=== PATIENT | male | born 1950 | race Caucasian/White ===

== ENCOUNTER 2016-08-29 08:58 | Inpatient (IN) | payer MEDICARE, OTHER ==
[2016-08-22 16:09] LABS: BASOPHILS 0.6 %; BASOPHILS ABSOLUTE 0.05 10/3/uL (0.0-0.16); EOSINOPHILS 4.4 %; EOSINOPHILS ABSOLUTE 0.35 10/3/uL (0.0-0.53); HEMATOCRIT 42.5 % (40.0-51.0); HEMOGLOBIN 14.3 g/dL (13.6-17.8); IMMATURE GRANULOCYTES 0.4 %; IMMATURE GRANULOCYTES ABSOLUTE 0.03 10/3/uL (0.0-0.11); LYMPHOCYTES 27.8 %; LYMPHOCYTES ABSOLUTE 2.19 10/3/uL (0.67-4.30); MANUAL DIFF NO %; MEAN CORPUS HGB CONC 33.6 g/dL (32.0-36.0); MEAN CORPUSCULAR HEMOGLOB 33.7 pg (26.0-34.0); MEAN CORPUSCULAR VOLUME 100.2 fL (80-100); MEAN PLATELET VOLUME 9.8 fL (9.2-13.0); MONOCYTES 7.4 %; MONOCYTES ABSOLUTE 0.58 10/3/uL (0.21-1.20); NEUTROPHILS 59.4 %; NEUTROPHILS ABSOLUTE 4.69 10/3/uL (2.02-8.40); PLATELET COUNT 234 10/3/uL (150-400); RBC DISTRIBUTION WIDTH 13.3 % (12.0-16.0); RED CELL COUNT 4.24 10/6/uL (4.7-6.1); WHITE BLOOD CELLS 7.9 10/3/uL (4.5-10.5)
[2016-08-22 16:12] LABS: ASCORBIC ACID (UR NOT ORDER) NEG (NEG); BILIRUBIN, URINE NEGATIVE (NEG); KETONE, URINE NEGATIVE (NEG); LEUKOCYTE ESTERASE(NOT OR NEG (NEG); WBC (NOT ORDERED) (RFLEX) < 1 (0-5)
[2016-08-22 16:15] LABS: INTERNATIONAL NORMAL RATI 1.2 UNITS (-); PROTIME (NOT ORD) 15.2 SEC (12.0-14.5)
[2016-08-22 16:32] LABS: % IRON SAT 32 % (20-50); A/G RATIO 0.9 (0.7-1.9); ALBUMIN 3.5 G/DL (3.5-5.0); ALKALINE PHOSPHATASE 40 U/L (45-117); BUN (BLOOD UREA NITROGEN) 18 MG/DL (6-23); CALCIUM, SERUM 9.2 MG/DL (8.5-10.4); CHLORIDE, SERUM 100 MMOL/L (96-112); CO2 (CARBON DIOXIDE) 31 MMOL/L (24-34); CREATININE 1.17 MG/DL (0.70-1.30); GFR AFRICAN AMERICAN 74 ML/MIN (>=60); GFR NON AFRICAN AMERICAN 64 ML/MIN (>=60); GLOBULIN 3.7 G/DL (2.5-4.1); GLUCOSE, SERUM 143 MG/DL (60-99); IRON BINDING CAPACITY 346 MCG/DL (250-450); IRON, SERUM 111 MCG/DL (35-150); POTASSIUM, SERUM 4.4 MMOL/L (3.5-5.3); SGOT(AST) 30 U/L (5-40); SGPT(ALT) 39 U/L (5-65); SODIUM, SERUM 140 MMOL/L (135-148); TOTAL BILIRUBIN 0.4 MG/DL (0-1.2); TOTAL PROTEIN 7.2 G/DL (6.0-8.5)
--- NOTE | ~2016-08-29 | DS ---
Discharge Summary [facility] [address] [place]. [address] NAME: ZAC GARCIA : 46 STATUS : DIS IN PAT#: [id number] AGE: 66 ADM/REG DATE : 08/29/16 MR#: [id number] REPORT SERV DATE: 12/05/16 DICTATED BY: MADHAVI INGRAM DATE: 12/05/16 REPORT STATUS : Draft TRANSCRIBED BY: BITA DATE: 12/05/16 Data Collection from hospitalization DISCHARGE DIAGNOSES: 1. Coronary artery disease. 2. Persistent atrial fibrillation. 3. Transient ischemic attack. 4. Peripheral vascular disease. 5. Type 2 diabetes mellitus. 6. Obstructive sleep apnea. 7. Hypertension. 8. Hypercholesterolemia. 9. Carotid artery disease. 10.Depression. 11.Anemia. 12.History of myocardial infarction. 13.Peripheral vascular disease. 14.Former smoker. CONSULTATIONS: 1. Jori Simpson M.D. 2. Stephanie Smith M.D. 3. Jack Irwin M.D. PROCEDURE PERFORMED: 1. Coronary artery bypass grafting x4 with left internal mammary artery to the left anterior descending artery, reverse saphenous vein graft placed to the first obtuse marginal, reverse saphenous vein graft placed to the posterior descending artery and reverse saphenous vein graft placed to the posterolateral branch vessel; endoscopic vein harvest of the saphenous vein from the left thigh; Burden-Maze IV procedure on cardiopulmonary bypass using radiofrequency ablation and cryoablation; and transesophageal echocardiography on 08/29/2016. PATHOLOGY: Left atrial appendage excision - atrial tissue with mild myocyte hypertrophy and focal fatty infiltration, otherwise, unremarkable. MEDICATIONS: Eliquis 5 mg twice a day, vitamin C 1000 mg twice a day, aspirin 81 mg daily, Lipitor 80 mg daily, vitamin B12 1000 mcg at bedtime, Neurontin 600 mg three times a day, NovoLog injection insulin as instructed, Lantus as instructed, Effexor 37.5 mg daily, Prilosec 20 mg daily, Glucophage 850 mg three times a day, Tylenol 1000 mg twice a day, vitamin D3 2000 units three times a day, and Mag-Delay one tablet daily. CONDITION AT DISCHARGE: Stable. DISPOSITION: The patient was discharged to [facility] on an 1800-calorie cardiac/diabetic diet with activities as instructed. HOSPITAL COURSE: This is a 66-year-old man who has a history of paroxysmal atrial Discharge [id number] [facility] [place]. [address] NAME: ZAC GARCIA : 48 STATUS : DIS IN PAT#: [id number] AGE: 66 ADM/REG DATE : 08/29/16 MR#: [id number] REPORT SERV DATE: 12/05/16 DICTATED BY: MADHAVI INGRAM DATE: 12/05/16 REPORT STATUS : Draft TRANSCRIBED BY: MODAn DATE: 12/05/16 fibrillation who had been evaluated for a possible catheter-based ablation therapy with Dr. Bales. He has a history of paroxysmal atrial fibrillation and recurrently persistent atrial fibrillation. Transesophageal echocardiogram prior to cardioversion and considered catheter based ablation demonstrated clot in the left atrial appendage. This procedure was aborted. The patient has no knowledge of when he developed atrial fibrillation or converts to a normal sinus rhythm. His atrial fibrillation dates back to 2010. The patient has had several TIAs over the past four or five years. The patient had undergone a cardiac catheterization which demonstrated significant coronary artery disease. Ventricular function was preserved with an ejection fraction around 50%. Echocardiography demonstrated good ventricular function with no significant valvular pathology and no ASD or patent foramen ovale. The patient did have ad dilated left atrium. Treatment options were discussed and it was elected to proceed with surgical intervention. He was admitted to the hospital at this time for further evaluation and treatment. Upon admission, he was taken to the operating room where he underwent the above-mentioned procedure. He tolerated this well, and there were no complications. Postoperatively, he was seen by Dr. Jack Irwin. The patient was still sedated and intubated. The patient had a left ventricular ejection fraction of 50%. On postop day #1, he did complain of pain consistent with postop pain. His lungs were clear. Amiodarone was continued. He did have some confusion. His incisions looked okay. He had no edema. He remained in the ICU for now. On 08/31/2016, his blood pressure was labile. He still had some confusion. Serum creatinine level was elevated. White count was 13. The patient's said that postop confusion was not unusual for him. He was seen in consultation by Dr. Jori Simpson Jr., regarding acute kidney injury. His impression included acute kidney injury, nonoliguric. Serum creatinine was 2.0. He had mild chronic kidney disease with nonnephrotic proteinuria. His usual creatinine is 1.1. With regard to his sluggish urinary output, vascular congestion, and mild hyperkalemia, he was going to be given a couple of doses of loop diuretics. IV fluids were reduced. The Cody catheter was going to remain in place for urinary monitoring. It was felt that he should be a candidate for resumption of STORMY inhibitor at a later date. Lopressor and amiodarone were continued. The patient had profound first-degree AV block. Lopressor was placed on hold. He was transferred to the floor. He did have some generalized weakness. He was seen in consultation by Dr. Stephanie Smith regarding diabetes management. The patient has a history of type 2 diabetes and takes Lantus twice a day and sliding scale insulin. The patient said his blood sugars have been reasonably controlled on this regimen and that his latest hemoglobin A1c was 6.7. He has had a significantly decreased appetite postoperatively, but he was tolerating his diet. INR level was 1.3. He was placed on Levemir once a day as well as level 2 sliding scale insulin. Glucerna was added with meals. Diet and lifestyle modification were extensively discussed with the patient. He underwent diabetes education. His amiodarone dose was decreased. Beta-april had been stopped. Anticoagulant would be restarted after chest tubes were removed. He had been taking apixaban. On 09/02/2016, his sternum was clean, dry, and intact. INR level was 1.4. Levemir was increased. He did have some incisional discomfort. Creatinine was 1.42. The next day, his INR level was 1.8. Orthostatic vital signs were checked. He did have some dizziness as well as a short syncopal episodes. He had no chest pain or shortness of breath. He was afebrile. He had no edema. He was evaluated by Physical Therapy. Levemir was increased. Discharge Summary [place] [id number] [facility] [place]. [address] NAME: ZAC GARCIA : 46 STATUS : DIS IN PAT#: [id number] AGE: 66 ADM/REG DATE : 08/29/16 MR#: [id number] REPORT SERV DATE: 12/05/16 DICTATED BY: MADHAVI INGRAM DATE: 12/05/16 REPORT STATUS : Draft TRANSCRIBED BY: BITA DATE: 12/05/16 On 09/04/2016, amiodarone was decreased. Eliquis was continued. His lungs were clear. Occupational Therapy evaluated the patient. Discharge planning was performed. On 09/06/2016, he complained of pain in his left back and chest. He felt like it improves during the day, he had no edema. Discharge instructions were given. Due to his improved and stable condition, he was discharged to [facility] with the above-stated instructions. Information collected by: Muriel Lawrence I submit the above information as my discharge summary. TEJAS/BITA Madhavi Ingram M.D. / [id number] CC: Alisha Lewis M.D. [facility] Alisha Prince Jr, M.D.
--- NOTE | ~2016-08-29 | CN ---
Consultation Report [facility] [address] [place]. [address] NAME: ZAC GARCIA : 46 STATUS : ADM IN [facility]#: [id number] AGE: 66 ADM/REG DATE : 08/29/16 MR#: [id number] REPORT SERV DATE: 09/01/16 DICTATED BY: STEPHANIE SMITH DATE: 09/01/16 REPORT STATUS : Draft TRANSCRIBED BY: MODL DATE: 09/01/16 CONSULT DATE OF CONSULTATION: REASON FOR CONSULT: Diabetes management. HISTORY OF PRESENT ILLNESS: This is a very pleasant 66-year-old gentleman, who has an extensive past medical history significant for coronary artery disease, status post prior ND, status post recent CABG x4 performed during this hospitalization; atrial fibrillation, on anticoagulation, status post maze procedure; history of TIA; history of diabetes type 2, insulin dependent, uncontrolled; obstructive sleep apnea, on CPAP; history of hypertension; hyperlipidemia; peripheral vascular disease, status post right lower extremity amputation; who has been recently admitted to [facility] Surgery where the patient underwent CABG x4, performed by Dr. Ingram on 08/29/2016. The patient has a history of diabetes type 2, for which he is taking Lantus twice a day and sliding scale insulin. The patient says that his blood sugars have been reasonably controlled on this regimen and his latest hemoglobin A1c is 6.7. Postoperatively, the patient has a significantly decreased appetite, but he is tolerating diet. He is denying any chest pain or increasing shortness of breath. No nausea or vomiting. No abdominal pain. No increased urinary frequency or urgency. No other complaints. Hospitalist Service has been consulted for management of his diabetes. PAST MEDICAL HISTORY: Again, the past medical history is significant for coronary artery disease, status post CABG; atrial fibrillation; history of TIA; history of diabetes type 2, uncontrolled, insulin dependent; history of hypertension; chronic kidney disease; history of obstructive sleep apnea; history of degenerative joint disease; osteoarthritis; depression; anxiety; GERD; and history of diabetic neuropathy. PAST SURGICAL HISTORY: Includes status post right BKA, also open cholecystectomy, right carotid endarterectomy, right great toe amputation, revision of the right below-knee amputation stump secondary to an infection. SOCIAL HISTORY: He is not a smoker. He quit about 18 years ago. No alcohol. No IV drugs. ALLERGIES: THE PATIENT IS ALLERGIC TO AMPICILLIN AND MEPERIDINE. MEDICATIONS: At home include Tylenol, Eliquis, aspirin, Lipitor, vitamin D3, Plavix, vitamin B12, Neurontin, NovoLog, Lantus, lisinopril, mag chloride, Glucophage, Lopressor, Prilosec, garlic over the counter, and Effexor. FAMILY HISTORY: Significant for cancer, dementia, and heart disease. REVIEW OF SYSTEMS: A 14-point review of systems has been obtained and pertinent positive has been listed into Consultation Report [id number] [place]. [address] NAME: ZAC GARCIA : 46 STATUS : ADM IN [facility]#: [id number] AGE: 66 ADM/REG DATE : 08/29/16 MR#: [id number] REPORT SERV DATE: 09/01/16 DICTATED BY: STEPHANIE SMITH DATE: 09/01/16 REPORT STATUS : Draft TRANSCRIBED BY: MODAn DATE: 09/01/16 the history of present illness. Otherwise, negative except those underlying above. PHYSICAL EXAMINATION: VITAL SIGNS: Currently, the patient is afebrile. Blood pressure 159/71, heart rate 87, respiratory rate 19, saturating 97% on room air. Blood sugars 101, 103, 143, 147, 123, 125. GENERAL: He is a well-developed, well-nourished gentleman, in no acute distress. He is alert and oriented x3. Mildly confused at times. Following all commands appropriately. HEENT: Exam shows pupils equal, round, and reactive to light. Extraocular movements intact. NECK: No JVD. No lymphadenopathy. No thyromegaly appreciated. CHEST: Eval shows bilateral air entry. Decreased breath sounds bibasilarly. No wheezes, crackles, or rhonchi appreciated. CARDIOVASCULAR: He has regular rate and rhythm. S1, S2 positive. No S3, no S4. No murmurs, rubs, or gallops appreciated. ABDOMEN: Soft with positive bowel sounds. Nontender. No guarding. No rebound. EXTREMITIES: No clubbing, cyanosis, or edema. The patient has right BKA, which has a clean stump. NEUROLOGIC: The patient is alert and oriented x3. He does have some confusion at this time, but he is cooperative and he follows commands appropriately. Cranial nerves are intact. LABORATORY DATA: Labs from today include a sodium of 143, potassium 5.2, chloride 109, CO2 25, BUN 52, creatinine 1.89, glucose is 123. The patient's hemoglobin A1c was 6.7. His white count is 8, hemoglobin 9.4, hematocrit 28.3, platelets 128. INR 1.3. ASSESSMENT AND PLAN: This is a very pleasant 66-year-old gentleman with: 1. Coronary artery disease, status post CABG x4, status post maze procedure. 2. Diabetes type 2, insulin dependent, uncontrolled. We are going to place the patient on Levemir once a day currently, Accu-Cheks before meals and at bedtime, sliding scale insulin subcutaneously level 2, add Glucerna with meals. Also, diet and lifestyle modification has been discussed extensively with the patient as well. Further workup and recommendation pending above. Thank you for the consult. We will continue to follow with you. It is also worthwhile to note that the patient is going to be followed by Dr. Hilda Lieberman. CF/DERRICKL Stephanie Smith M.D. / [id number] CC: Consultation Report [address] [address] NAME: ZAC GARCIA : 46 STATUS : ADM IN [facility]#: [id number] AGE: 66 ADM/REG DATE : 08/29/16 MR#: [id number] REPORT SERV DATE: 09/01/16 DICTATED BY: STEPHANIE SMITH DATE: 09/01/16 REPORT STATUS : Draft TRANSCRIBED BY: BITA DATE: 09/01/16 Olu Ingram M.D.
--- NOTE | ~2016-08-29 | CN ---
Consultation Report [facility] [address] [place]. [address] NAME: ZAC GARCIA : 46 STATUS : ADM IN PAT#: [id number] AGE: 66 ADM/REG DATE : 08/29/16 MR#: [id number] REPORT SERV DATE: 08/31/16 DICTATED BY: TRINO HU JR DATE: 08/31/16 REPORT STATUS : Draft TRANSCRIBED BY: MODL DATE: 08/31/16 NEPHROLOGY CONSULTATION DATE OF CONSULTATION: 08/31/2016 REASON FOR CONSULTATION: Acute kidney injury. IMPRESSION: 1. Acute kidney injury, nonoliguric, entry serum creatinine 1.4 and 2.0 today. 2. Mild chronic kidney disease with nonnephrotic proteinuria, usual creatinine 1.1. 3. Status post four-vessel CABG and a maze procedure on 08/29. 4. History of transient ischemic attack. 5. History of peripheral vascular disease with remote right lower extremity BKA. 6. Adult-onset diabetes. 7. Somewhat depressed urinary output. 8. Hyperkalemia. 9. Mild pulmonary vascular congestion. 10.Altered mental status that the family attributes to post anesthesia effect. RECOMMENDATIONS: With regard to the sluggish urinary output, vascular congestion and mild hyperkalemia, I will give him a couple of doses of loop diuretic. IV fluids have already been reduced. Please keep the Cody for urinary monitoring in a gentleman who is confused and experiencing acute renal failure. He should be a candidate for resumption of STORMY inhibitor later. HISTORY OF PRESENT ILLNESS: This gentleman is followed by [facility] for mild chronic kidney disease, estimated GFR in the 60-70 mL/minute range, with urine protein excretion less than 2 g per day. He has undergone coronary artery bypass grafting and a maze procedure. Prior history of atrial fibrillation. History is of type 2 diabetes, essential hypertension, prior episode of acute kidney injury requiring hemodialysis for several months, remote history of C difficile colitis, cataract removed, cholecystectomy, gastroesophageal reflux disease, dyslipidemia, peripheral neuropathy, prior episode of vancomycin-resistant Enterococcus bacteremia that was stated to be simultaneous with a PermCath use. He came in electively for his bypass procedure three days ago, operation was two days ago, he has experienced an increase in his serum creatinine and his urine output, though nonoliguric, is sluggish. PREHOSPITAL MEDICATIONS: Apixaban 5 mg twice a day; aspirin 81 mg a day; atorvastatin 80 mg daily; vitamin D3, 2000 units three times a week; Clopidogrel 75 mg daily; vitamin B12, 1000 mcg daily; gabapentin 600 mg three times a day; sliding scale insulin; lisinopril 20 mg a day; magnesium 535 mg daily; metformin 850 mg three times a day; metoprolol 25 mg twice a Consultation Report [place] [id number] [facility] [place]. [address] NAME: ZAC GARCIA : 46 STATUS : ADM IN PAT#: [id number] AGE: 66 ADM/REG DATE : 08/29/16 MR#: [id number] REPORT SERV DATE: 08/31/16 DICTATED BY: TRINO HU JR DATE: 08/31/16 REPORT STATUS : Draft TRANSCRIBED BY: BITA DATE: 08/31/16 day; omeprazole 20 mg daily; [id number]-ptnstxf garlic; and Effexor 37.5 mg daily. ALLERGIES: LISTED AMPICILLIN AND MEPERIDINE. FAMILY HISTORY: Notable for a brother with diabetes; a brother with cardiovascular disease; father at a young age, cause of is not listed. SOCIAL HISTORY: Former smoker, not a current smoker. Retired. No history of alcohol use. REVIEW OF SYSTEMS: The patient does not currently acknowledge head, neck, pulmonary, other cardiac, GI, , musculoskeletal, neurological, integumentary, or psychiatric complaints. He does have confusion. His hands are in mittens for protection of self and devices. PHYSICAL EXAMINATION: GENERAL: Overweight male, looks stated age, in no acute distress. HEENT: Male pattern baldness. Pupils are equal. No icterus. No periorbital edema. No epistaxis. Mucous membranes of the mouth are moist. Facial symmetry is noted. NECK: No jugular venous distention at 60 degrees. No carotid bruits heard. Trachea is midline. Adenopathy is not felt. Supraclavicular nodes are not palpable. LUNGS: Clear to auscultation with symmetrical air entry. HEART: Tones regular without rub, murmur, or gallop being appreciated. Sternal wound is not palpated. ABDOMEN: Obese, soft, nontender without distended liver edge in the upright position. Guarding and tenderness is not noted. GENITALIA: Cody catheter is in place, appropriate drainage of his urine. EXTREMITIES: The right lower extremity, BKA stump is clean, dry, and intact. There is no edema of the right lower extremity. The left lower extremity is heavily bandaged and could not be examined. NEUROLOGIC: He has some confusion. Dysarthria, however, is not present. He obviously moves all extremities. Cognition is diminished. However, he is cooperative with the examiner. DATA: Today, sodium 142, potassium 5.3, chloride 110, CO2 of 23, BUN is 43, creatinine 2.0, anion gap is about 10, calcium is 7.5. White count is 13,000; hemoglobin 10, down from 13; MCV 101; platelets 175. Chest x-ray, I reviewed, with some mild interstitial vascular congestion and small effusions. DF/MODL Trino Hu Jr, M.D. Consultation Report [address] [place]. [address] NAME: ZAC GARCIA : 46 STATUS : ADM IN PAT#: [id number] AGE: 66 ADM/REG DATE : 08/29/16 MR#: [id number] REPORT SERV DATE: 08/31/16 DICTATED BY: TRINO HU JR DATE: 08/31/16 REPORT STATUS : Draft TRANSCRIBED BY: MODL DATE: 08/31/16 / [id number] CC: Alisha Lewis M.D. [facility] Liang Bales M.D.
--- NOTE | ~2016-08-29 | OP ---
Record Of Operation [facility] [address] [place]. [address] NAME: ZAC GARCIA : 46 STATUS : ADM IN PAT#: [id number] AGE: 66 ADM/REG DATE : 08/29/16 MR#: [id number] REPORT SERV DATE: 08/29/16 DICTATED BY: MADHAVI INGRAM DATE: 08/29/16 REPORT STATUS : Draft TRANSCRIBED BY: MODL DATE: 08/29/16 DATE OF PROCEDURE: 08/29/2016 PREOPERATIVE DIAGNOSES: 1. Coronary artery disease. 2. Persistent atrial fibrillation. 3. History of transient ischemic attack. 4. Peripheral vascular disease status post amputation right lower extremity. 5. History of previous myocardial infarction. 6. Type 2 insulin-dependent diabetes mellitus. 7. Obstructive sleep apnea. 8. Hypertension. 9. Hypercholesterolemia. 10.Left foot ulcer. PROCEDURE PERFORMED: 1. Coronary artery bypass grafting x4, left internal mammary artery placed to left anterior descending, reverse saphenous vein graft placed to the first obtuse marginal, reverse saphenous vein graft placed to the posterior descending artery, and reverse saphenous vein graft placed to the posterolateral branch vessel. 2. Endoscopic vein harvest, saphenous vein from the left thigh. 3. Burden-Maze IV procedure on cardiopulmonary bypass using radiofrequency ablation and cryoablation. 4. Transesophageal echocardiography. SURGEON: Madhavi Ingram M.D. ASSISTANTS: Carlos Salmon and Jovany Grande. ANESTHESIA: General with Dr. Weir. PRIVATE DUTY AIDE: Calvin Wright M.D. INDICATIONS: This is a 66-year-old gentleman with a history of paroxysmal atrial fibrillation who was evaluated for a possible catheter based ablation therapy with Dr. Bales. He has history of paroxysmal atrial fibrillation and recurrently persistent atrial fibrillation. DARLENE prior to cardioversion and considered catheter based ablation demonstrated clot in the left atrial appendage, and this procedure was aborted. The patient was then referred for possible Burden-Maze IV procedure. The patient has no knowledge of when he develops atrial fibrillation or converts to normal sinus rhythm. Atrial fibrillation dates back to 2010. His most recent history is that of TIAs, and he has had several TIAs over last four or five years. In June, he had some right arm numbness which extended to the right face. He went to the emergency room but had resolution prior to presentation there. He has no history of stroke. He does have a history of previous non ST-elevation myocardial infarction. We saw the patient in our office, and he was referred for cardiac catheterization. Cardiac catheterization demonstrated significant coronary artery disease. Record Of Operation [facility] [address] [place]. [address] NAME: ZAC GARCIA : 46 STATUS : ADM IN PAT#: [id number] AGE: 66 ADM/REG DATE : 08/29/16 MR#: [id number] REPORT SERV DATE: 08/29/16 DICTATED BY: MADHAVI INGRAM DATE: 08/29/16 REPORT STATUS : Draft TRANSCRIBED BY: MODL DATE: 08/29/16 Ventricular function was preserved with an ejection fraction around 50%. Echocardiography demonstrated good ventricular function with no significant valvular pathology and no ASD or patent foramen ovale. The patient did have dilated left atrium. We saw the patient again in our office and after catheterization, I reviewed the films and felt the patient undergo coronary bypass grafting with possible Burden-Maze IV procedure. This was discussed at length with the patient and his family and after discussing the operations, indication, and risks, they wished to proceed. STS predicted risk for coronary bypass grafting was less than 3% mortality, and morbidity mortality was less than 10%. FINDINGS AT OPERATION: 1. Cross-clamp 77 minutes, total pump time 115 minutes. 2. The LAD was a 2 mm moderately diseased vessel. A 3 mm FAYE was anastomosed to it with good runoff. 3. The first obtuse marginal was 1.75 mm moderately diseased. A 4 mm RSVG was anastomosed to it with good runoff. 4. The posterior descending artery was 2 mm and moderately diseased. A 3 mm saphenous vein graft was anastomosed to it with good runoff. 5. The posterolateral branch vessel was 1.75 mm and moderately diseased. A 3.5 mm RSVG was anastomosed to it with good runoff. The vein graft for the posterior lateral and posterior descending vessels was a natural Y graft. 6. The vein quality was good. We used a natural Y graft for the posterior descending and posterior lateral branch vessels. All grafts had good Doppler signal at the end of the case. 7. The Burden-Maze IV procedure was performed on cardiopulmonary bypass using the AtriCure radiofrequency ablation system and cryoprobe. Please refer to the complete Burden-Maze IV lesion set checklist on the patient's operative record. Entrance sensing was tested for pulmonary veins. 8. We did ligate and amputate the left atrial appendage. On examination of the left atrial appendage, no clot was seen within the left atrial appendage. 9. DARLENE demonstrated mildly reduced ventricular function with EF of 40%. There was no surgically significant valvular dysfunction. No clot was visualized in the left atrial appendage on DARLENE. 10.Large plaque of ascending aortic stent beginning at 2 cm proximal to the takeoff of the innominate and extending up around the arch. 11.On cardiac catheterization review in the operating room, I felt the LAD had a significant midvessel lesion in it, and that is why we used the YANNI to bypass this vessel. PATHOLOGIC SPECIMENS: Include left atrial appendage. DESCRIPTION OF PROCEDURE: The patient was brought to the operating suite. General anesthesia was induced. Airway was secured with an endotracheal tube. Lines secured by Anesthesia and Cody catheter was placed. The patient's chest, abdomen, groin, and legs were prepped with Hibiclens and ChloraPrep and draped with Ioban sterile sheets. DARLENE probe was placed by Dr. Weir and examination carried out as discussed above. The saphenous vein was harvested from the left thigh using endoscopic technique. Briefly, Record Of Operation [facility] [id number] [facility] [place]. [address] NAME: ZAC GARCIA : 46 STATUS : ADM IN PAT#: [id number] AGE: 66 ADM/REG DATE : 08/29/16 MR#: [id number] REPORT SERV DATE: 08/29/16 DICTATED BY: MADHAVI INGRAM DATE: 08/29/16 REPORT STATUS : Draft TRANSCRIBED BY: MODAn DATE: 08/29/16 the vein was cut directly down upon through a 2 cm incision placed at the medial aspect of the right knee. Then, using VasoView trocars, the vessel was dissected from the surrounding subcutaneous tissue and fat. The side branches were identified, ligated, divided with cautery. Once adequate length of vein had been dissected, a counter incision made up in the groin where the vein was ligated, divided, and brought through the knee incision. The vein quality was good. In fact, there was a nice natural Y in this vein graft that I felt was usable for one of the distal targets. The leg wounds were then made hemostatic and closed in layers with absorbable suture and skin closed in subcuticular fashion. Then, a midline sternal incision was made and the sternum opened with a saw. The left hemithorax was elevated. The endothoracic fascia was incised. Side branch of the YANNI were clipped and divided. Once the YANNI was completely dissected, the patient was anticoagulated with heparin, and chest tube placed in the left pleural cavity. The YANNI was clipped and divided distally. There was good flow through the YANNI and its pedicle was infiltrated with papaverine. Next, the Mello retractor was placed, and the pericardium was opened from the innominate vein. The diaphragm was T'd and tacked to the side of the chest wall. Cannulation pursestring sutures were placed. Cannulation ascending aorta was carried out. It should be noted there was a large plaque in the anterior wall of the ascending aorta that appeared to be circumferential. It extended 2 cm proximal to the origin of the innominate artery. We cannulated the very proximal extent of this plaque and it was avoided. Next, the Maze procedure was begun. The AtriCure bipolar clamp was used to perform the right atrial appendage lesion along with the vertical right atrial lesion. A dual-stage venous cannula was then placed. When all was in readiness, the patient was placed on cardiopulmonary bypass. We continued with the right-sided lesion set for the Maze procedure. Small right atriotomy was made, and SVC and IVC lesions were created. A cryo was utilized to perform a tricuspid annular lesion at the 2 o'clock position and a coronary sinus based lesion. Once this portion of the Maze procedure was completed, a retrograde cardioplegia cannula was placed. We then marked out the distal targets on the heart as described in the findings. We resumed left-sided portion of the Maze procedure by first dissecting around the confluence of the pulmonary veins bilaterally. The AtriCure bipolar pen was used then for sensing the left pulmonary veins. Left and right pulmonary venous isolation was performed using AtriCure bipolar clamps. The lesion was placed at the base of the left atrial appendage using the clamp and then a connecting lesion between the left PVI and the left atrial appendage was performed using the AtriCure bipolar pen. Next, the aorta was crossclamped. Initial dose cold blood cardioplegia solution was given in a combination of antegrade and retrograde fashion, then in a retrograde manner following proximal anastomoses. Following completion of the first dose of cardioplegia, we continued and completed the left-sided portion of the Maze procedure. A small left atriotomy was made in Waterston's groove between right and left atrium. The AtriCure bipolar clamp was then utilized to perform a superior and inferior dome lesions. A Record Of Operation [facility] [address] [facility] [place]. [address] NAME: ZAC GARCIA : 46 STATUS : ADM IN PAT#: [id number] AGE: 66 ADM/REG DATE : 08/29/16 MR#: [id number] REPORT SERV DATE: 08/29/16 DICTATED BY: MADHAVI INGRAM DATE: 08/29/16 REPORT STATUS : Draft TRANSCRIBED BY: BITA DATE: 08/29/16 partial lesion was placed down toward the mitral annulus in the region of P3 and this was completed across up to the anulus using the cryoprobe. Once the Maze procedure was completed, the LV vent was placed through the right superior pulmonary vein, and the left atrial anatomy was closed in a two-layer fashion with running pledgeted suture of 4-0 Prolene. Heart support was placed, and we continued with the procedure as a bypass operation. Another dose of cardioplegia was given. The heart was first positioned for the obtuse marginal graft. Arteriotomy was made, and the vein graft trimmed and anastomosed to it with 7-0 Prolene. The vein graft was measured to the left side of the ascending aorta where it was divided. We then positioned the heart for the posterolateral branch graft. Arteriotomy was made in the natural Y, graft was brought to the field, and one limb of this Y was anastomosed to the posterior lateral branch with a running suture of 7-0 Prolene. The vein graft was then measured to the ascending aorta where it was divided. Next, proximal ends of the two vein grafts were anastomosed to 4.5 mm punch aortotomy with a 6-0 Prolene. Another dose of cardioplegia was given, and we positioned the heart for the PDA graft. Taking the remaining branch of the natural Y graft, arteriotomy was made in the PDA. The vein was opened and anastomosed to this vessel with a running suture of 7-0 Prolene. We then positioned the heart for the LAD graft, and warming was begun. Arteriotomy was made in the mid to distal LAD. The YANNI was brought out of the left chest through a notch in the pericardium over the pulmonary artery. The YANNI was opened and anastomosed to the LAD with a running suture of 8-0 Prolene. The endothoracic fascia was tacked to epicardium. The patient was placed in Trendelenburg and final dose of warm blood cardioplegia was given in a retrograde fashion. Ventricular and atrial pacing wires were placed. Low-dose inotropic agents were started. Following the last dose cardioplegia and deairing of the aorta, the aortic cross clamp was removed. The distal and proximal anastomoses and suture lines were inspected and made hemostatic. Doppler demonstrated good flow through the grafts. The heart resumed a junctional rhythm and later a sinus rhythm. Ventilation was begun. When the heart demonstrated good contractility, it was allowed to fill and eject. De-airing was monitored with DARLENE. When deairing was completed, the LV vent was removed and these pursestring sutures tied. The ascending aortic vent was likewise removed and these pursestring sutures tied and reinforced. The patient was weaned from cardiopulmonary bypass with inotropic support. The venous cannulas were removed, and these pursestring sutures tied. DARLENE examination demonstrated good ventricular function with no surgically significant valvular disease. Protamine was administered by Anesthesia and following a period of hemodynamic stability, the aortic cannula was removed and these pursestring sutures tied and reinforced. The patient continued to do well and chest irrigated copiously with saline. Meticulous hemostasis was obtained. Hemasorb was placed along the cut edge of the sternum. Once hemostasis was assured, the pericardium was draped over the anterior surface of the heart and tacked into position. Doppler demonstrated good flow through the grafts following Record Of Operation [facility] [address] [facility] [place]. [address] NAME: ZAC GARCIA : 46 STATUS : ADM IN [facility]#: [id number] AGE: 66 ADM/REG DATE : 08/29/16 MR#: [id number] REPORT SERV DATE: 08/29/16 DICTATED BY: MADHAVI INGRAM DATE: 08/29/16 REPORT STATUS : Draft TRANSCRIBED BY: MODL DATE: 08/29/16 protamine administration. Then, chest tubes were placed and sternum reapproximated with 8 sternal wires. The clavipectoral fascia and linea alba closed with #1 Stratafix. The subcutaneous tissue was closed with Stratafix and skin closed in subcuticular fashion. The patient tolerated the procedure well. There were no complications. Sponge and needle counts were correct. DISPOSITION: The patient was left intubated, sedated, and transported to the Intensive Care Unit in stable condition. LAURIE/BITA Madhaiv Ingram M.D. / [id number] CC: Alisha Lewis M.D. C. Samuel Ledford, M.D.
[~2016-08-29 08:58] MED LIST: ACET500CAP PO; ALLERGY MEDICATION PO; ASA5GR PO; ASAB PO; ATEN50 PO; CEFAZ1 IM; CINNAMONPO PO; COREG3 PO; CYANO1000T PO; EFFEX37.5 PO; ELIQUIS 5 MG TAB5 MG PO; GARLIC; GARLIC OR; GARLIC OTC PO; GLUCOPHAGE1000 MG PO; GLUCPH PO; GLUCPH8 PO; HALF81 PO; HYDROCHLOROT25 MG PO; KETOPROFEN50 MG PO; KLOR-CON M2020 MEQ PO; LANTUS; LANTUS SC; LEVAQ750PM IV; LIPITOR20 PO; LIPITOR80 MG PO; LISINOPRIL40 MG PO; LOP25 PO; LOVENOX SC; MAG-DELAY PO; MAGNESIUM OTC PO; MAGONATE PO; MCZ25 PO; METFORMIN PO; MULTIVIT/MIN PO; NEUR300 PO; NORV10 PO; NORV5 PO; NOVOLOG SC; PLAVIX PO; POTASSIUM95 MG PO; PRILO PO; PRILOSEC40 MG PO; PRIN10 PO; PRIN20 PO; VITAMIN D3 OTC PO; VITAMIN D31000 UNIT PO; ZOCOR40 PO
[2016-08-29 10:29] LABS: TEG - ANGLE 71.5 DEG (53-72); TEG - COAGULATION INDEX 0.6 (-3 TO 3); TEG - RATE 7.3 MIN (5.0-10.0); TEG PLAVIX/EFFIENT/TICLID(ADP) 10.3 % INHIB (< 40)
[2016-08-29 10:30] LABS: MAX AMP (ADP) 61.4 MM (35-68)
[2016-08-29 16:22] LABS: BE (BASE EXCESS) -0.1 MEQ/L (0 +/- 2.5); CARBOXYHEMOGLOBIN 0.4 % (0-3); HCO3 (ACTUAL BICARBONATE) 25.5 MEQ/L (23-27); HEMOBLOGIN CONTENT 13.6 G/DL (14-18); INSTRUMENT SERIAL # 11843; METHEMOGLOBIN 0.3 % (0-3); MODE SIMV; O2 CONTENT 19.2 VOL% (18-24); OPERATOR ID 18642; PCO2 (CO2 TENSION) 45 MMHG (35-45); PO2 (O2 TENSION) 226 MMHG (79-93); PRESSURE SUPPORT 0 cm.H2O; SAMPLE Arterial; TIDAL VOLUME 700 ML; pH 7.37 (7.37-7.43)
[2016-08-29 16:55] LABS: HEMATOCRIT 38.8 % (40.0-51.0); HEMOGLOBIN 13.2 g/dL (13.6-17.8); PLATELET COUNT 179 10/3/uL (150-400)
[2016-08-29 17:02] LABS: INTERNATIONAL NORMAL RATI 1.3 UNITS (-); PARTIAL THROMBO TIME 34.4 SEC (22.5-37.2)
[2016-08-29 17:05] LABS: CHLORIDE, SERUM 108 MMOL/L (96-112); CO2 (CARBON DIOXIDE) 27 MMOL/L (24-34); CREATININE 1.43 MG/DL (0.70-1.30); GFR AFRICAN AMERICAN 58 ML/MIN (>=60); GFR NON AFRICAN AMERICAN 50 ML/MIN (>=60); GLUCOSE, SERUM 124 MG/DL (60-99); SODIUM, SERUM 142 MMOL/L (135-148)
[2016-08-29 17:07] LABS: BUN (BLOOD UREA NITROGEN) 29 MG/DL (6-23); POTASSIUM, SERUM 4.2 MMOL/L (3.5-5.3)
[2016-08-29 21:01] LABS: HEMATOCRIT 36.7 % (40.0-51.0); HEMOGLOBIN 12.4 g/dL (13.6-17.8)
[2016-08-29 21:22] LABS: BUN (BLOOD UREA NITROGEN) 28 MG/DL (6-23); CALCIUM, SERUM 7.8 MG/DL (8.5-10.4); CHLORIDE, SERUM 112 MMOL/L (96-112); CO2 (CARBON DIOXIDE) 25 MMOL/L (24-34); CREATININE 1.44 MG/DL (0.70-1.30); GFR AFRICAN AMERICAN 57 ML/MIN (>=60); GFR NON AFRICAN AMERICAN 50 ML/MIN (>=60); GLUCOSE, SERUM 138 MG/DL (60-99); POTASSIUM, SERUM 4.6 MMOL/L (3.5-5.3); SODIUM, SERUM 145 MMOL/L (135-148)
[2016-08-29 22:02] LABS: BE (BASE EXCESS) -2.5 MEQ/L (0 +/- 2.5); CARBOXYHEMOGLOBIN 0.9 % (0-3); DEVICE NC; HCO3 (ACTUAL BICARBONATE) 22.5 MEQ/L (23-27); HEMOBLOGIN CONTENT 12.4 G/DL (14-18); INSTRUMENT SERIAL # 11843; METHEMOGLOBIN 0.2 % (0-3); O2 CONTENT 16.7 VOL% (18-24); OPERATOR ID 32193; PCO2 (CO2 TENSION) 40 MMHG (35-45); PO2 (O2 TENSION) 98 MMHG (79-93); SAMPLE Arterial; pH 7.37 (7.37-7.43)
[2016-08-29 22:29] LABS: BASOPHILS 0.1 %; BASOPHILS ABSOLUTE 0.01 10/3/uL (0.0-0.16); EOSINOPHILS 0.2 %; EOSINOPHILS ABSOLUTE 0.02 10/3/uL (0.0-0.53); IMMATURE GRANULOCYTES 0.3 %; IMMATURE GRANULOCYTES ABSOLUTE 0.03 10/3/uL (0.0-0.11); LYMPHOCYTES 7.4 %; LYMPHOCYTES ABSOLUTE 0.75 10/3/uL (0.67-4.30); MEAN CORPUS HGB CONC 34.2 g/dL (32.0-36.0); MEAN CORPUSCULAR HEMOGLOB 33.9 pg (26.0-34.0); MEAN CORPUSCULAR VOLUME 99.2 fL (80-100); MEAN PLATELET VOLUME 9.8 fL (9.2-13.0); MONOCYTES 3.9 %; NEUTROPHILS 88.1 %; NEUTROPHILS ABSOLUTE 8.92 10/3/uL (2.02-8.40); PLATELET COUNT 158 10/3/uL (150-400); RBC DISTRIBUTION WIDTH 13.3 % (12.0-16.0); RED CELL COUNT 3.63 10/6/uL (4.7-6.1); WHITE BLOOD CELLS 10.1 10/3/uL (4.5-10.5)
[2016-08-29 22:37] LABS: MANUAL DIFF NO %
[2016-08-30 03:34] LABS: HEMOGLOBIN 10.9 g/dL (13.6-17.8); MEAN CORPUS HGB CONC 34.2 g/dL (32.0-36.0); MEAN CORPUSCULAR HEMOGLOB 33.9 pg (26.0-34.0); MEAN CORPUSCULAR VOLUME 99.1 fL (80-100); MEAN PLATELET VOLUME 9.7 fL (9.2-13.0); PLATELET COUNT 145 10/3/uL (150-400); RBC DISTRIBUTION WIDTH 13.5 % (12.0-16.0); RED CELL COUNT 3.22 10/6/uL (4.7-6.1); WHITE BLOOD CELLS 10.4 10/3/uL (4.5-10.5)
[2016-08-30 03:35] LABS: HEMATOCRIT 31.9 % (40.0-51.0); MANUAL DIFF YES %
[2016-08-30 03:46] LABS: BUN (BLOOD UREA NITROGEN) 29 MG/DL (6-23); CALCIUM, SERUM 7.7 MG/DL (8.5-10.4); CHLORIDE, SERUM 114 MMOL/L (96-112); CO2 (CARBON DIOXIDE) 25 MMOL/L (24-34); CREATININE 1.41 MG/DL (0.70-1.30); GFR AFRICAN AMERICAN 59 ML/MIN (>=60); GFR NON AFRICAN AMERICAN 51 ML/MIN (>=60); POTASSIUM, SERUM 5.1 MMOL/L (3.5-5.3); SODIUM, SERUM 147 MMOL/L (135-148)
[2016-08-30 03:50] LABS: GLUCOSE, SERUM 90 MG/DL (60-99)
[2016-08-30 03:53] LABS: BAND NEUTROPHILS 1 %; LYMPHOCYTES 4 %; LYMPHOCYTES ABSOLUTE (CALC) 0.42 10/3/uL (0.67-4.30); MONOCYTES 4 %; MONOCYTES ABSOLUTE (CALC) 0.42 10/3/uL (0.21-1.20); NEUTROPHILS ABSOLUTE (CALC) 9.57 10/3/uL (2.02-8.40); SEGMENTED NEUTROPHIL (0) 91 %; TOTAL NUCLEATED CELLS 100
[2016-08-30 03:54] LABS: PLATELET ESTIMATE SLT DEC (ADEQUATE); POLYCHROMASIA 1+ (2-5/OIF) (0-1/OIF)
[2016-08-30 19:05] LABS: POTASSIUM, SERUM 5.4 MMOL/L (3.5-5.3)
[2016-08-30 19:20] LABS: HEMATOCRIT 29.9 % (40.0-51.0); HEMOGLOBIN 10.1 g/dL (13.6-17.8)
[2016-08-31 03:35] LABS: BASOPHILS 0 %; EOSINOPHILS 0 %; HEMATOCRIT 31.6 % (40.0-51.0); HEMOGLOBIN 10.3 g/dL (13.6-17.8); IMMATURE GRANULOCYTES 0.3 %; IMMATURE GRANULOCYTES ABSOLUTE 0.04 10/3/uL (0.0-0.11); LYMPHOCYTES 13.1 %; MANUAL DIFF NO %; MEAN CORPUS HGB CONC 32.6 g/dL (32.0-36.0); MEAN CORPUSCULAR HEMOGLOB 33.1 pg (26.0-34.0); MEAN CORPUSCULAR VOLUME 101.6 fL (80-100); MEAN PLATELET VOLUME 9.7 fL (9.2-13.0); MONOCYTES 11.3 %; MONOCYTES ABSOLUTE 1.46 10/3/uL (0.21-1.20); NEUTROPHILS 75.3 %; NEUTROPHILS ABSOLUTE 9.77 10/3/uL (2.02-8.40); PLATELET COUNT 175 10/3/uL (150-400); RBC DISTRIBUTION WIDTH 14.1 % (12.0-16.0); RED CELL COUNT 3.11 10/6/uL (4.7-6.1)
[2016-08-31 03:47] LABS: CALCIUM, SERUM 7.5 MG/DL (8.5-10.4); CHLORIDE, SERUM 110 MMOL/L (96-112); CO2 (CARBON DIOXIDE) 23 MMOL/L (24-34); GFR AFRICAN AMERICAN 38 ML/MIN (>=60); GFR NON AFRICAN AMERICAN 33 ML/MIN (>=60); GLUCOSE, SERUM 94 MG/DL (60-99); POTASSIUM, SERUM 5.3 MMOL/L (3.5-5.3); SODIUM, SERUM 142 MMOL/L (135-148)
[2016-08-31 03:50] LABS: BUN (BLOOD UREA NITROGEN) 43 MG/DL (6-23); CREATININE 2.01 MG/DL (0.70-1.30)
[2016-08-31 16:32] LABS: CALCIUM, SERUM 7.5 MG/DL (8.5-10.4); CHLORIDE, SERUM 110 MMOL/L (96-112); CO2 (CARBON DIOXIDE) 25 MMOL/L (24-34); CREATININE 2.16 MG/DL (0.70-1.30); GFR AFRICAN AMERICAN 35 ML/MIN (>=60); GFR NON AFRICAN AMERICAN 30 ML/MIN (>=60); SODIUM, SERUM 141 MMOL/L (135-148)
[2016-08-31 16:33] LABS: BUN (BLOOD UREA NITROGEN) 51 MG/DL (6-23); GLUCOSE, SERUM 140 MG/DL (60-99)
[2016-09-01 03:29] LABS: BASOPHILS 0.3 %; BASOPHILS ABSOLUTE 0.02 10/3/uL (0.0-0.16); EOSINOPHILS 1.3 %; HEMOGLOBIN 9.4 g/dL (13.6-17.8); IMMATURE GRANULOCYTES 0.6 %; IMMATURE GRANULOCYTES ABSOLUTE 0.05 10/3/uL (0.0-0.11); LYMPHOCYTES 21.3 %; MEAN CORPUS HGB CONC 33.2 g/dL (32.0-36.0); MEAN CORPUSCULAR HEMOGLOB 33.8 pg (26.0-34.0); MEAN CORPUSCULAR VOLUME 101.8 fL (80-100); MONOCYTES 9.5 %; MONOCYTES ABSOLUTE 0.76 10/3/uL (0.21-1.20); NEUTROPHILS ABSOLUTE 5.35 10/3/uL (2.02-8.40); PLATELET COUNT 128 10/3/uL (150-400); RBC DISTRIBUTION WIDTH 13.8 % (12.0-16.0); RED CELL COUNT 2.78 10/6/uL (4.7-6.1)
[2016-09-01 03:30] LABS: HEMATOCRIT 28.3 % (40.0-51.0); MANUAL DIFF NO %
[2016-09-01 03:46] LABS: A/G RATIO 0.9 (0.7-1.9); ALBUMIN 2.7 G/DL (3.5-5.0); ALKALINE PHOSPHATASE 29 U/L (45-117); BUN (BLOOD UREA NITROGEN) 52 MG/DL (6-23); CALCIUM, SERUM 7.5 MG/DL (8.5-10.4); CHLORIDE, SERUM 109 MMOL/L (96-112); CO2 (CARBON DIOXIDE) 25 MMOL/L (24-34); CREATININE 1.89 MG/DL (0.70-1.30); GFR AFRICAN AMERICAN 41 ML/MIN (>=60); GFR NON AFRICAN AMERICAN 36 ML/MIN (>=60); GLUCOSE, SERUM 123 MG/DL (60-99); PHOSPHORUS, SERUM 3.4 MG/DL (2.5-4.5); POTASSIUM, SERUM 5.2 MMOL/L (3.5-5.3); SGOT(AST) 50 U/L (5-40); SGPT(ALT) 18 U/L (5-65); SODIUM, SERUM 143 MMOL/L (135-148); TOTAL BILIRUBIN 0.6 MG/DL (0-1.2); TOTAL PROTEIN 5.7 G/DL (6.0-8.5)
[2016-09-02 06:36] LABS: BASOPHILS 0.3 %; BASOPHILS ABSOLUTE 0.02 10/3/uL (0.0-0.16); EOSINOPHILS 4.2 %; EOSINOPHILS ABSOLUTE 0.32 10/3/uL (0.0-0.53); HEMOGLOBIN 9.5 g/dL (13.6-17.8); IMMATURE GRANULOCYTES 0.7 %; IMMATURE GRANULOCYTES ABSOLUTE 0.05 10/3/uL (0.0-0.11); LYMPHOCYTES 20.6 %; LYMPHOCYTES ABSOLUTE 1.57 10/3/uL (0.67-4.30); MEAN CORPUS HGB CONC 32.8 g/dL (32.0-36.0); MEAN CORPUSCULAR HEMOGLOB 33.3 pg (26.0-34.0); MEAN CORPUSCULAR VOLUME 101.8 fL (80-100); MEAN PLATELET VOLUME 9.4 fL (9.2-13.0); MONOCYTES 10.4 %; MONOCYTES ABSOLUTE 0.79 10/3/uL (0.21-1.20); NEUTROPHILS 63.8 %; NEUTROPHILS ABSOLUTE 4.88 10/3/uL (2.02-8.40); RBC DISTRIBUTION WIDTH 13.6 % (12.0-16.0); RED CELL COUNT 2.85 10/6/uL (4.7-6.1); WHITE BLOOD CELLS 7.6 10/3/uL (4.5-10.5)
[2016-09-02 06:37] LABS: INTERNATIONAL NORMAL RATI 1.4 UNITS (-); PROTIME (NOT ORD) 16.6 SEC (12.0-14.5)
[2016-09-02 06:44] LABS: MANUAL DIFF NO %; PLATELET COUNT 184 10/3/uL (150-400)
[2016-09-02 06:49] LABS: ALBUMIN 2.5 G/DL (3.5-5.0); CHLORIDE, SERUM 105 MMOL/L (96-112); CO2 (CARBON DIOXIDE) 29 MMOL/L (24-34); CREATININE 1.42 MG/DL (0.70-1.30); GFR AFRICAN AMERICAN 58 ML/MIN (>=60); GFR NON AFRICAN AMERICAN 50 ML/MIN (>=60); GLUCOSE, SERUM 139 MG/DL (60-99); POTASSIUM, SERUM 4.5 MMOL/L (3.5-5.3); SODIUM, SERUM 141 MMOL/L (135-148)
[2016-09-02 06:50] LABS: BUN (BLOOD UREA NITROGEN) 43 MG/DL (6-23)
[2016-09-03 05:57] LABS: INTERNATIONAL NORMAL RATI 1.8 UNITS (-)
[2016-09-03 06:00] LABS: PROTIME (NOT ORD) 20.9 SEC (12.0-14.5)
[2016-09-03 06:09] LABS: ALBUMIN 2.5 G/DL (3.5-5.0); BUN (BLOOD UREA NITROGEN) 33 MG/DL (6-23); CHLORIDE, SERUM 105 MMOL/L (96-112); CO2 (CARBON DIOXIDE) 27 MMOL/L (24-34); CREATININE 1.06 MG/DL (0.70-1.30); GFR AFRICAN AMERICAN 83 ML/MIN (>=60); GFR NON AFRICAN AMERICAN 72 ML/MIN (>=60); GLUCOSE, SERUM 136 MG/DL (60-99); PHOSPHORUS, SERUM 3.7 MG/DL (2.5-4.5); POTASSIUM, SERUM 4.3 MMOL/L (3.5-5.3); SODIUM, SERUM 141 MMOL/L (135-148)
[2016-09-06 05:43] LABS: BASOPHILS 0.5 %; BASOPHILS ABSOLUTE 0.04 10/3/uL (0.0-0.16); EOSINOPHILS 5.5 %; EOSINOPHILS ABSOLUTE 0.41 10/3/uL (0.0-0.53); HEMOGLOBIN 8.8 g/dL (13.6-17.8); IMMATURE GRANULOCYTES 1.1 %; IMMATURE GRANULOCYTES ABSOLUTE 0.08 10/3/uL (0.0-0.11); LYMPHOCYTES 21.7 %; LYMPHOCYTES ABSOLUTE 1.63 10/3/uL (0.67-4.30); MANUAL DIFF NO %; MEAN CORPUS HGB CONC 32.6 g/dL (32.0-36.0); MEAN CORPUSCULAR HEMOGLOB 32.8 pg (26.0-34.0); MEAN CORPUSCULAR VOLUME 100.7 fL (80-100); MEAN PLATELET VOLUME 9.4 fL (9.2-13.0); MONOCYTES 10.6 %; NEUTROPHILS 60.6 %; NEUTROPHILS ABSOLUTE 4.56 10/3/uL (2.02-8.40); PLATELET COUNT 295 10/3/uL (150-400); RBC DISTRIBUTION WIDTH 13.6 % (12.0-16.0); RED CELL COUNT 2.68 10/6/uL (4.7-6.1); WHITE BLOOD CELLS 7.5 10/3/uL (4.5-10.5)
[2016-09-06 05:56] LABS: CHLORIDE, SERUM 102 MMOL/L (96-112); CO2 (CARBON DIOXIDE) 29 MMOL/L (24-34); CREATININE 1.08 MG/DL (0.70-1.30); GFR AFRICAN AMERICAN 81 ML/MIN (>=60); GFR NON AFRICAN AMERICAN 70 ML/MIN (>=60); POTASSIUM, SERUM 4.8 MMOL/L (3.5-5.3); SODIUM, SERUM 139 MMOL/L (135-148)
[2016-09-06 05:58] LABS: BUN (BLOOD UREA NITROGEN) 27 MG/DL (6-23); CALCIUM, SERUM 10.1 MG/DL (8.5-10.4); GLUCOSE, SERUM 106 MG/DL (60-99)
[2016-10-05] MEDS ORDERED: BETAPACE80 PO (10:27)
== END 2016-09-06 16:16 | DRG 229 ==
LOC: SDC 08:58 → CVICU 13:04 → 5NO 09-01 11:56
PROVIDERS: Internal Medicine Nephrology; Nurse Practitioner; Thoracic Surgery (Cardiothoracic Vascular Surgery)
PROC: 06BQ0ZZ Excision of Left Saphenous Vein, Open Approach (ICD-10-PCS; 2016-08-29)
PROC: 5A1221Z Performance of Cardiac Output, Continuous (ICD-10-PCS; 2016-08-29)
PROC: B246ZZ4 Ultrasonography of Right and Left Heart, Transesophageal (ICD-10-PCS; 2016-08-29)
PROC: 02L70CK Occlusion of Left Atrial Appendage with Extraluminal Device, Open Approach (ICD-10-PCS; 2016-08-29)
PROC: 021209W Bypass Coronary Artery, Three Arteries from Aorta with Autologous Venous Tissue, Open Approach (ICD-10-PCS; principal; 2016-08-29 10:30)
PROC: 02580ZZ Destruction of Conduction Mechanism, Open Approach (ICD-10-PCS; 2016-08-29 10:30)
PROC: 0210099 Bypass Coronary Artery, One Artery from Left Internal Mammary with Autologous Venous Tissue, Open Approach (ICD-10-PCS; 2016-08-29 10:30)
DX: I25.10 Atherosclerotic heart disease of native coronary artery without angina pectoris (principal); E11.22 Type 2 diabetes mellitus with diabetic chronic kidney disease; N18.3 Chronic kidney disease, stage 3 (moderate); I48.1 Persistent atrial fibrillation; Z86.73 Personal history of transient ischemic attack (TIA), and cerebral infarction without residual deficits; I25.2 Old myocardial infarction; G47.33 Obstructive sleep apnea (adult) (pediatric); E78.00 Pure hypercholesterolemia, unspecified; L97.529 Non-pressure chronic ulcer of other part of left foot with unspecified severity; I12.9 Hypertensive chronic kidney disease with stage 1 through stage 4 chronic kidney disease, or unspecified chronic kidney disease; Z89.511 Acquired absence of right leg below knee; E87.5 Hyperkalemia; Z79.4 Long term (current) use of insulin; I44.0 Atrioventricular block, first degree; E66.9 Obesity, unspecified; Z68.30 Body mass index [BMI] 30.0-30.9, adult
CPT/HCPCS: 31720; 36415; 71010; 71020; 80048; 80053; 80069; 81001; 82330; 82803; 82805; 82947; 82962; 83036; 83540; 83550; 83735; 84100; 84132; 84295; 85014; 85018; 85025; 85049; 85347; 85384; 85576; 85576-59; 85610; 85730; 86850; 86900; 86901; 86920; 87641; 88304; 93005; 93312; 93320; 93325; 94002; 94640; 94660; 94770; 97110-GP; 97116-GP; 97161-GP; 97166-GO; A9270-GY; C1713; C1725; C1769; C1894; C2618; G8978-CJ-GP; G8979-CI-GP; G8987-CK-GO; G8988-CK-GO; G8989-CK-GO; J0690; J1644; J1940; J2150; J2250; J2370; J2405; J2440; J2720; J2795; J2930; J3010; J3475; J3480; P9045; P9047

== ENCOUNTER 2016-09-07 21:19 | Emergency (ER) | payer MEDICARE, OTHER ==
[2016-10-05] MEDS ORDERED: BETAPACE80 PO (10:27)
== END 2016-09-07 23:45 | disposition home or self-care (01) ==
LOC: ER 21:19
DX: K91.873 Postprocedural seroma of a digestive system organ or structure following other procedure (principal); I25.2 Old myocardial infarction; I48.91 Unspecified atrial fibrillation; I12.9 Hypertensive chronic kidney disease with stage 1 through stage 4 chronic kidney disease, or unspecified chronic kidney disease; N18.9 Chronic kidney disease, unspecified; E11.22 Type 2 diabetes mellitus with diabetic chronic kidney disease; F32.9 Major depressive disorder, single episode, unspecified; Z95.1 Presence of aortocoronary bypass graft; Z86.73 Personal history of transient ischemic attack (TIA), and cerebral infarction without residual deficits; Z87.891 Personal history of nicotine dependence; Z88.1 Allergy status to other antibiotic agents; Z88.8 Allergy status to other drugs, medicaments and biological substances; Z79.4 Long term (current) use of insulin; Z79.82 Long term (current) use of aspirin; Z79.899 Other long term (current) drug therapy
CPT/HCPCS: 99283